=== PATIENT | female | born 1935 | race Caucasian/White ===

== ENCOUNTER 2019-08-05 23:14 | Observation (INO) | payer MEDICARE, OTHER ==
[~2019-08-05] VITALS: Ht 172.7 cm; Wt 78.2 kg
[~2019-08-05 23:14] MED LIST: ATIVAN1 MG PO; BAYER CHEWABLE81 MG PO; LEVOXYL75 MCG PO; NASONEX NASAL S17 GM NS; NORVASC10 MG PO; PRAVACHOL40 MG PO; RYTHMOL150 MG PO; XARELTO10 MG PO
[2019-08-05] MEDS ORDERED: PROBIOTIC1 EAC1 PO (23:22)
[2019-08-05] MEDS ORDERED: MULTI-DAY VITAM1 TAB PO (23:22)
[2019-08-06] VITALS: BP 135/54
[2019-08-06] LABS: HEMATOCRIT 38.3 % (36.0-48.0); HEMOGLOBIN 12.4 g/dL (12-16); LYMPHOCYTES 23.7 % (15-50); MCH 30.3 pg (26.0-34.0); MCHC 32.4 g/dL (31.0-37.0); MCV 93.6 fL (80.0-100.0); MEAN PLATELET VOLUME 10.5 fL (7.4-10.4); NEUTROPHILS 65.2 % (40-80); PLATELET COUNT 155 10x3/uL (130-400); RBC 4.09 10x6/uL (4.00-5.40); RDW 15.3 % (11.5-14.5); WBC 10.9 10x3/uL (4.8-10.8)
[2019-08-06 00:07] LABS: ALBUMIN 3.6 g/dL (3.4-5.0); ALKALINE PHOSPHATASE 91 U/L (46-116); ALT (SGPT) 24 U/L (10-68); BILIRUBIN - TOTAL 0.23 mg/dL (0.2-1.3); CALC OSMOLALITY 293 mosm/kg (275-300); CALCIUM 8.9 mg/dL (8.5-10.1); CHLORIDE - SERUM 104 mmol/L (98-107); CREATININE - SERUM 1.7 mg/dL (0.6-1.3); GLUCOSE 97 mg/dL (74-106); POTASSIUM - SERUM 4.2 mmol/L (3.5-5.1); PROTEIN - SERUM 6.6 g/dL (6.4-8.2); SODIUM 143 mmol/L (136-145); UREA NITROGEN 38 mg/dL (7-18); eGFR NON AFRICAN AMERICAN 30 mL/min (90-120)
[2019-08-06 00:13] LABS: APPEARANCE HAZY (CLEAR); BILIRUBIN NEGATIVE (NEGATIVE); COLOR YELLOW (YELLOW); GLUCOSE NEGATIVE (NEGATIVE); KETONE NEGATIVE (NEGATIVE); NITRITE NEGATIVE (NEGATIVE); PROTEIN NEGATIVE (NEGATIVE); SPECIFIC GRAVITY 1.015 (1.005-1.020); UROBILINOGEN NORMAL (NORMAL)
[2019-08-06 00:15] LABS: BACTERIA MODERATE /hpf (NEGATIVE); EPITHELIAL CELLS 0-5 /hpf (0-5); HYALINE CAST 0-5 /lpf (NONE SEEN); RED CELLS - URINE 0-5 /hpf (0-5); YEAST <1+ /hpf (NONE SEEN)
[2019-08-06 00:20] LABS: CKMB 1.3 U/L (0.0-3.6); CREATINE KINASE 68 UL (21-215); THYROID STIMULATING HORMONE 3.27 uIU/mL (0.36-3.74); TROPONIN-I < 0.017 ng/mL (0.000-0.060)
[2019-08-06 00:30] VITALS: BP 121/45
--- NOTE | 2019-08-06 00:40 | NUR ---
PT AND FAMILY UPDATED ON PLAN OF CARE. NO S/S OF ACUTE DISTRESS NOTED.
--- NOTE | 2019-08-06 02:03 | NUR ---
PT ARRIVED TO FLOOR VIA STRECHER FROM ER. PT IS ALERT AND ORIENTED X4. TELE PLACE ON PT. NO S/S OF DISTRESS AT THIS TIME. BED LOW CALL LIGHT WITHIN REACH. WILL CONTINUE TO MONITOR.
[2019-08-06] MEDS ORDERED: PROPAFENONE HC150 MG PO (02:09)
[2019-08-06 03:48] VITALS: BP 167/57; BMI 26.2
[2019-08-06 05:50] LABS: BASOPHILS 0.5 % (0-2); EOSINOPHILS 2.9 % (0-7); HEMOGLOBIN 11.3 g/dL (12-16); IMMATURE GRANULOCYTES 0.2 % (0-5); LYMPHOCYTES 26.1 % (15-50); MCH 29.7 pg (26.0-34.0); MCHC 32.3 g/dL (31.0-37.0); MCV 92.1 fL (80.0-100.0); MEAN PLATELET VOLUME 10.3 fL (7.4-10.4); MONOCYTES 8.4 % (2-11); NEUTROPHILS 61.9 % (40-80); PLATELET COUNT 141 10x3/uL (130-400); RDW 15.6 % (11.5-14.5); WBC 9.7 10x3/uL (4.8-10.8)
[2019-08-06 06:35] LABS: CALC OSMOLALITY 292 mosm/kg (275-300); CALCIUM 8.7 mg/dL (8.5-10.1); CHLORIDE - SERUM 107 mmol/L (98-107); CKMB 1.2 U/L (0.0-3.6); CREATINE KINASE 56 UL (21-215); CREATININE - SERUM 1.3 mg/dL (0.6-1.3); GLUCOSE 96 mg/dL (74-106); MAGNESIUM - SERUM 2.2 mg/dL (1.8-2.4); PHOSPHOROUS 3.2 mg/dL (2.5-4.9); SODIUM 143 mmol/L (136-145); TROPONIN-I < 0.017 ng/mL (0.000-0.060); UREA NITROGEN 34 mg/dL (7-18); eGFR NON AFRICAN AMERICAN 41 mL/min (90-120)
[2019-08-06 06:40] LABS: APTT 22.9 SECONDS (22.8-39.4); PROTIME 12.7 SECONDS (11.6-15.0)
--- NOTE | 2019-08-06 07:18 | NUR ---
REPORT RECEIVED. WILL CONTINUE WITH POC. PT CURRENTLY LYING SUPINE. CALL LIGHT W/I REACH. PT IS AAO AND UP WITH ASSIST. PT ASSISTED TO AND FROM BATHROOM. RR EVEN AND UNLABORED ON RA. NS INFUSING @100ML/HR VIA R.FOR PIV. NO S/S OF DISTRESS NOTED. PT DENIES ANY NEEDS. WILL CTM.
[2019-08-06 08:00] VITALS: BP 158/96
[2019-08-06 08:17] VITALS: Ht 172.7 cm; Wt 78.2 kg
--- NOTE | 2019-08-06 10:48 | NUR ---
I have reviewed this patient and I concur with the Shift Assessment completed by the Licensed Practical Nurse today this shift.
[2019-08-06 11:57] LABS: CKMB 1.3 U/L (0.0-3.6); CREATINE KINASE 59 UL (21-215); TROPONIN-I 0.018 ng/mL (0.000-0.060)
[2019-08-06 12:24] VITALS: BP 143/48
--- NOTE | 2019-08-06 13:38 | CN ---
PATIENT NAME:ROSIO SANTANA MEDICAL RECORD: [id number] : 33 LOCATION:[facility] D.2128 ADMIT DATE: 08/06/19 ACCOUNT: [id number] CONSULTING PHYSICIAN: KIANA MAYORGA MD REFERRING PHYSICIAN: PANTERA HUGHES MD DATE OF CONSULTATION: 08/06/2019 CARDIOLOGY CONSULT ADMITTING DIAGNOSES: 1. Paroxysmal atrial fibrillation. 2. Palpitations. 3. Coronary artery disease. 4. Previous percutaneous transluminal coronary angioplasty stent. 5. Hypertension. 6. Valvular heart disease, mitral regurgitation. HISTORY OF PRESENT ILLNESS: Mrs. Santana presents with palpitations. She had a back injection yesterday, she had pain from that. Then, she spent 5 hours cleaning the floors of her house. She felt palpitations, called her daughter. On the blood pressure machine, her heart rate was 140. She presented to the Emergency Room. Since being here, she has had no atrial fibrillation. She has a longstanding history of atrial fibrillation. She is on propafenone only 75 mg b.i.d. It was decreased to 75 mg b.i.d. last year due to bradycardia. Since being in, her heart rate has been in the 50s and 60s in sinus rhythm. She had no chest pain or chest discomfort with that. She does have a history of coronary artery disease. Last cardiac intervention in 2012. Blood pressure controlled on Norvasc. PHYSICAL EXAMINATION: CONSTITUTIONAL/GENERAL APPEARANCE: Well nourished, well developed, appears stated age. EYES: Lids and conjunctivae noninjected. No discharge. No pallor. ENT: Lips within normal limit. No cyanosis. No pallor. NECK: Carotid arteries, bilateral normal upstroke. No bruits. No thrills. No jugular venous pressure or distention. CERVICAL LYMPH NODES: Nontender. Nonenlarged. THYROID: Not enlarged. No nodules. CARDIOVASCULAR: Precordial exam, nondisplaced. No heaves or pericardial thrills. Rate and rhythm, regular. Heart sounds, normal S1, normal S2. No S3, no gallop, no rub. Systolic murmur, not heard. Diastolic murmur, not heard. RESPIRATORY: Respiratory effort, unlabored. Normal curvature. No thoracic deformity. No chest wall tenderness. Percussion, resonant. Auscultation, clear. No wheezes, no rales, no rhonchi. ABDOMEN: Soft, nondistended, nontender. No abdominal pain, no vomiting and normal appetite. MUSCULOSKELETAL: No joint tenderness, normal gait, normal tone. SKIN: Warm and dry. OVERALL IMPRESSION: Paroxysmal atrial fibrillation, no atrial fibrillation since being here. Restart the propafenone and amlodipine. We will get an echocardiogram to reassess the valvular heart disease. Other than that no cardiac workup or testing is necessary and she can be discharged home on her current medications. CONSULT REPORT [id number] ROSIO SANTANA TRANSINT:[id number] Voice Confirmation ID: [id number] DOCUMENT ID: [id number] KIANA MAYORGA MD at 1338 CC: [id number] DICTATION DATE: 08/06/19818 CHARGING PLUG PLACER: 08/06/19 1047 ADM IN [facility] [address] [place] [address]
--- NOTE | 2019-08-06 14:20 | NUR ---
PT DISCHARGED HOME WITH FAMILY. PT REFUSED WHEELCHAIR AND CHOSE TO AMBULATE. PT SIGNED PROPER DISCHARGE INSTRUCTIONS AND REMOVED ALL VALUABLES FROM THE ROOM. TELEMETRY REMOVED AND RETURNED. PIV REMOVED WITH CATHETER TIP FULLY INTACT.
--- NOTE | 2019-08-08 09:14 | EC ---
PATIENT:ROSIO SANTANA DATE OF SERVICE: 08/06/19 SEX: F MEDICAL RECORD: [id number] DATE OF : 33 LOCATION:D. D.212 AGE OF PATIENT: 84 ADMISSION DATE: 08/06/19 REFERRING PHYSICIAN: INTERPRETING PHYSICIAN: KIANA MICHAEL MD ECHOCARDIOGRAM REPORT ECHO CHARGES 4 ECHO COMPLETE Date: 08/06/19 CLINICAL DIAGNOSIS: PALPITIATIONS ECHOCARDIOGRAPHIC MEASUREMENTS (adult normal given) AC root (d.<3.7cm) 2.7 cm LV Septum d (<1.2 cm> 1.0 cm Valve Excursion 1.5 cm LV Septum (systole) 1.6 cm Left Atria (s.<4.0cm> 4.0 cm LVPW d(<1.2cm) 1.1 cm RV (d.<2.3cm) 3.4 cm LVPW (sytole) 1.5 cm LV diastole(<5.6CM) 5.4 cm MV E-F(>70mm/sec) cm LV systole 3.5 cm LVOT Diameter 2.0 cm MV exc.(>10mm) cm Est.ejection fraction (50-75%) % DOPPLER: LVIT cm/sec A 92 cm/sec E 64 cm/sec LA cm/sec RVSP 19.5 mmHg LVOT 145 cm/sec AOP1/2T m/s Asc. Ao 185 cm/sec RVOT 137 cm/sec RA cm/sec PA 120 cm/sec AV Gradient Peak 13.7 mmHg AV Mean 6.5 mmHg AV Area 2.9 cm MV Gradient Peak 4.5 mmHg MV Mean 2.1 mmHg MV Area cm COMMENTS: Plastering Contractor: David PARRISH It Intern: 1 Dr. Michael TAPE# PACS Pericardial Effusion N DATE OF SERVICE: 08/06/2019 PROCEDURE: Echocardiogram. FINDINGS: 1. Left ventricular chamber size is within normal limits. Left ventricular systolic function is normal. Overall ejection fraction estimated at 55%. 2. Left atrium is within normal limits. Right atrium and right ventricular chamber sizes are mildly dilated. 3. Valvular structures have normal structure and motion. ECHOCARDIOGRAM REPORT [id number] ROSIO SANTANA 4. Doppler interrogation reveals no significant valvular insufficiency or stenosis. Pulmonary systolic pressure is estimated at 20 mmHg. 5. No evidence of pericardial effusion or left ventricular thrombus. TRANSINT:[id number] Voice Confirmation ID: [id number] DOCUMENT ID: [id number] KIANA MICHAEL MD at 0914 CC: [id number] DICTATION DATE: 08/06/19 1329 ANIMAL THERAPIST: 08/06/19 1344 DIS IN 08/06/19 [place] [id number] [place] [id number]
== END 2019-08-06 14:21 | disposition home or self-care (01) ==
LOC: D.ER 23:14 → D.M2 08-06 01:01 → OBSVTIME 08-06 01:01 → D.M2 08-06 01:01
PROVIDERS: Emergency Medicine; ADMIT Internal Medicine Nephrology; ATTEND Internal Medicine Nephrology
DX: I48.0 Paroxysmal atrial fibrillation (principal); I10 Essential (primary) hypertension; I25.10 Atherosclerotic heart disease of native coronary artery without angina pectoris; E03.9 Hypothyroidism, unspecified; Z87.891 Personal history of nicotine dependence; D64.9 Anemia, unspecified; N17.9 Acute kidney failure, unspecified; I34.0 Nonrheumatic mitral (valve) insufficiency